=== PATIENT | female | born 1950 ===

== ENCOUNTER 2020-11-28 06:37 | Day surgery (SDC) | payer OTHER | END 2020-11-28 10:40 | disposition home or self-care (01) | LOC: AMB-ENDOS 06:37 | PROVIDERS: ATTEND Surgery | DX: K57.32 Diverticulitis of large intestine without perforation or abscess without bleeding (principal); K64.8 Other hemorrhoids; Z20.822 Contact with and (suspected) exposure to COVID-19 ==